=== PATIENT | female | born 1975 | race African-American/Black ===

== ENCOUNTER → 2017-02-09 | Outpatient (CLI) | payer OTHER ==
[~2017-02-09] MED LIST: LIDOCAINE 2% INJ (20 MG/ML) 20 ML MDV ONE
--- NOTE | 2017-02-09 17:07 | WOMENS IMAGING REPORT ---
EXAM DESCRIPTION: U/S BREAST UNILAT LIMITED COMPLETED DATE/TIME: 02/09/2017 10:05 am REASON FOR STUDY: BREAST LUMP N63.0 UNSPECIFIED LUMP IN UNSPECIFIED BREAST COMPARISON: Right breast ultrasound 01/19/2017, bilateral mammograms 01/19/2017 TECHNIQUE: Real-time and static grayscale imaging performed of the right breast targeted to the area of mammographic concern. Selected color Doppler images recorded. LIMITATIONS: None. FINDINGS: Patient was referred for a biopsy of a complex nodule identified 01/19/2017. Ultrasound today demonstrates resolution of the nodule of concern seen on 01/19/2017, likely an infec melecio or inflamed sebaceous cyst. There are no focal worrisome findings on today's breast ultrasound. These findings were discussed with the patient. No biopsy was performed today. IMPRESSION: No suspicious findings detected by ultrasound. BIRAD: 1 Negative. RECOMMENDATION: RECOMMENDED FOLLOW-UP: Please continue yearly bilateral screening mammography in Dec. Consider bilateral screening tomosynthesis. COMMENT: [employer] ([employer]) has developed recommendations for screening MRI of the breasts in certain patient populations, to be used in conjunction with mammography. Breast MRI s urveillance may be appropriate for women with more than 20% lifetime risk of developing breast cancer as determined by genetic testing, significant family history of the disease, or history of mantle r adiation for Hodgkins Disease. [employer] Practice Guidelines 2008. TECHNICAL DOCUMENTATION: JOB ID: [id number] [employer]- All Rights Reserved
== END ==
LOC: WI 08:54 → EDSTATUS 10:09
PROVIDERS: ATTEND Internal Medicine Interventional Cardiology
DX: N63.10 Unspecified lump in the right breast, unspecified quadrant (principal)
CPT/HCPCS: 76642; J3490